=== PATIENT | male | born 1950 | race Caucasian/White ===

== ENCOUNTER 2019-07-06 06:27 | Day surgery (SDC) | payer MEDICARE ==
[2019-07-06] MEDS ORDERED: Propofol 200 MG/20 ML SDV IV ONE (06:28)
[2019-07-06] MEDS ORDERED: fentaNYL 100 MCG/2 ML SDV IV ONE (06:28)
[2019-07-06] MEDS ORDERED: Midazolam 1 MG/ML 2 ML SDV IV ONE (06:28)
[2019-07-06] MEDS ORDERED: Lactated Ringers 1,000 ML IV SCH (06:45)
[2019-07-06] MEDS ORDERED: Sodium Chloride 0.9% 10 ML Syringe FLUSH PRN (06:45)
[2019-07-06] MEDS ORDERED: ceFAZolin 1 GM Vial IVPUSH ONE (07:30)
[2019-07-06] MEDS ORDERED: ceFAZolin 1 GM in Sodium Chloride 0.9% 50 ML IV ONE (07:30)
--- NOTE | 2019-07-06 08:17 | PCM.HPR ---
H & P Addendum review - H & P Addendum Review Date of Original H & P: 06/08/19 Date Reviewed: 07/06/19 Time Reviewed: 08:00 Patient was Examined: No Changes
[2019-07-06] MEDS ORDERED: Bupivacaine 0.25% 30 ML SDV INJECT ONE (08:41)
[2019-07-06] MEDS ORDERED: ceFAZolin 1 GM Vial ONE (08:42)
--- NOTE | 2019-07-06 10:03 | PCM.OPNOTE ---
- General Post-Op/Procedure Note Date of Surgery/Procedure: 07/06/19 Operative Procedure(s): Repair R Ing Hernia (recurrent) Findings: Large Direct Hernia Pre Op Diagnosis: Recurrent R IH Post-Op Diagnosis: Same Anesthesia Technique: Spinal Primary Surgeon: Dante MANZANARES in mLs: 10 Complications: None Condition: Good
[2019-07-06] MEDS ORDERED: Acetaminophen/HYDROcodone 325-5 MG Tab PO PRN (10:04)
[2019-07-06] MEDS ORDERED: Ketorolac 30 MG/ML SDV IVPUSH ONE (10:57)
[2019-07-06] MEDS ORDERED: hydrOXYzine HCl 25 MG Tab PO ONE (11:00)
--- NOTE | 2019-07-06 11:39 | OR ---
DATE OF OPERATION: 07/06/2019 SURGEON: Dante Hodge MD PREOPERATIVE DIAGNOSIS: Recurrent right inguinal hernia. POSTOPERATIVE DIAGNOSIS: Recurrent right inguinal hernia, direct. PROCEDURE: Repair of recurrent right inguinal hernia with mesh. ANESTHESIA: Spinal with local. DESCRIPTION OF PROCEDURE: The patient was brought to the operating room after surgical site was initialed by myself and the patient. Spinal anesthesia was administered. Time-out was performed. The right lower abdomen and groin area were clipped, prepped with ChloraPrep and draped sterilely. IV Ancef had been given. An incision was made through his previous scar in the right inguinal region and extended through the subcutaneous tissue until the external fascia was identified. I incised this above his previous surgical site and the upper flap of the external fascia was easy to define. However, the lower flap was scarred with old mesh and took a fair amount of dissection to free this up. Once this was defined, I was able to dissect the cord structures off the pubic tubercle, and place a [place] drain around these. A large direct hernia was dissected free off the cord structures. The cord was wrapped with a Henok and retracted inferiorly while the direct hernia defect was further defined and then reduced, and I used 2-0 Vicryl suture to keep the direct hernia defect reduced to aid in visualization for the hernia repair. A large pre-cut keyhole polypropylene mesh was then used and secured to the pubic tubercle with #0 Prolene. Three more interrupted sutures were used to secure this to the Willard's ligament inferiorly and then a transition stitch made to the shelving edge of Poupart's ligament. The inferior edge of the mesh was finished being secured laterally. The edges of the mesh were brought around the cord and secured with #0 Prolene such that the tip of the small finger was snugly fit into the opening. I was unable to identify the ilioinguinal nerve during the procedure. The edges of the mesh were tucked back beneath the external fascia and superior to the mesh secured to the muscle using 0 Prolene, providing a tension-free repair. The wound was thoroughly irrigated with Ancef in saline. External fascia was closed with running 3-0 Vicryl. The subcutaneous tissue was reapproximated with #3-0 Vicryl and skin closed with a running #4-0 Vicryl subcuticular suture. Benzoin and Steri-Strips were placed and a sterile dressing applied. The patient tolerated the procedure well and returned to recovery in stable condition. ESTIMATED BLOOD LOSS: 10 mL. /[id number] BC/ABHI
[2019-07-06] MEDS ORDERED: Albuterol/Ipratropium 3.0-0.5 MG/3 ML Neb Soln NEB ONE (12:09)
== END 2019-07-06 14:50 | disposition home or self-care (01) ==
LOC: FB.SDS 06:27
PROVIDERS: ATTEND Surgery
DX: K40.91 Unilateral inguinal hernia, without obstruction or gangrene, recurrent (principal)
CPT/HCPCS: 82962; 94640; A9270-GY; C1781; J0690; J1885; J2250; J2704; J3010; J3490; J7120; J7620-GY